=== PATIENT | female | born 1995 ===

== ENCOUNTER 2021-07-31 17:18 | Emergency (ER) | payer OTHER ==
[~2021-07-31] VITALS: Ht 160 cm; Wt 64.4 kg
[2021-07-31 18:07] VITALS: BP 125/85
[2021-07-31 19:22] LABS: Hepatitis B Surface Antibody Negative
[2021-07-31 19:46] LABS: Hepatitis B Surface Antigen Negative (Negative)
== END 2021-07-31 19:06 | disposition home or self-care (01) ==
LOC: ER 17:18
DX: H11.32 Conjunctival hemorrhage, left eye (principal); Z77.21 Contact with and (suspected) exposure to potentially hazardous body fluids
CPT/HCPCS: 36415; 86703; 86706; 86803; 87340

== ENCOUNTER → 2021-12-16 | Outpatient (CLI) | payer OTHER ==
[2021-12-18 09:11] LABS: Hepatitis B Surface Antibody Positive (Negative)
== END | disposition home or self-care (01) ==
LOC: LAB 06:35
PROVIDERS: ATTEND Nurse Practitioner
DX: Z77.21 Contact with and (suspected) exposure to potentially hazardous body fluids (principal)
CPT/HCPCS: 36415; 86703; 86706; 86803; 87340